=== PATIENT | male | born 1945 | race Caucasian/White ===

== ENCOUNTER → 2020-07-24 11:34 | Outpatient (BNVA) | payer OTHER, MEDICARE, SELFPAY | PROVIDERS: Visit Provider Nurse Practitioner Family | DX: Z20.828 Contact with and (suspected) exposure to other viral communicable diseases (principal) | CPT/HCPCS: 87635 ==

== ENCOUNTER 2020-09-27 11:39 | Outpatient (CLI) | payer MEDICARE, SELFPAY ==
[2020-09-27 11:51] VITALS: BMI 29.7
[2020-09-27 11:59] VITALS: BP 172/85; PULSE 69; RESP 18; TEMP 37.3; O2SAT 96
--- NOTE | 2020-09-27 12:02 | A.OFFVIS_ITS ---
Patient Information Referred by: Maxi Austin Symptom onset date: 09/24/20 COVID 19 common symptoms: positive fever(s), cough and dyspnea Other details: 96% Covid positive Maxi Austin 09/25/20 [facility] COVID test results: SARS-CoV-2 RNA (RT-PCR) Not detected (NOT DETECTED) 07/24/20 11:34 07/24/20 outside results available, scanned Criteria/Plan Inclusion/Exclusion Criteria weight >/= 40kg, + direct test </= 10 days ago and symptom onset </= 10 days ago age >/= 65 not requiring hospitalization, not requiring oxygen (if not chronically on oxygen) and no increase oxygen requirement (if chronically on oxygen) Patient education patient/caregiver received/reviewed fact sheet, Emergency Use Authorization/unapproved drug status discussed with patient/caregiver, alternatives to this treatment discussed with patient/caregiver, risks and benefits of medication reviewed with patient/caregiver, patient/caregiver given opportunity for questions, which were answered and patient/caregiver consents to receiving Monoclonal Antibody Treatment Plan for treatment Meets criteria for Monoclonal Antibody infusion
[2020-09-27 12:50] VITALS: BP 158/85; PULSE 64; RESP 18; O2SAT 97
[2020-09-27 14:49] VITALS: BP 146/81; PULSE 57; RESP 18; TEMP 36.8; O2SAT 99
[2020-09-27 14:50] VITALS: BP 146/81; PULSE 57; RESP 18; TEMP 36.8; O2SAT 99
== END 2020-09-27 14:50 | disposition home or self-care (01) ==
LOC: OPS 11:42
PROVIDERS: Visit Provider Nurse Practitioner Family
DX: U07.1 COVID-19 (principal)
CPT/HCPCS: 96365

== ENCOUNTER 2020-11-11 13:16 | Outpatient (CLI) | payer MEDICARE, SELFPAY ==
--- NOTE | 2020-11-11 13:29 | CT_ITS ---
WS: [id number] CT scan of the abdomen and pelvis with Oral and without IV contrast. Additional two-dimensional bela nal and sagittal reconstruction was performed. 11/11/2020 Clinical Data: ABDOMINAL PAIN, BLOATING, CONSTIPATION, NAUSEA, GASTRITIS Comparison: CT abdomen and pelvis, 06/10/2015. DLP: 1072.[address] scans at [facility] use at least one of these dose optimization techniques: automat ed exposure control; mA and/or kV adjustment per patient size (includes targeted exams where dose is matched to clinical indication); or iterative reconstruction. Findings: The lower lungs show no nodules, masses or effusions. There is a small hiatal hernia. The liver, gallbladder, spleen, adrenal glands and pancreas are normal. The kidneys show no cysts, masses, renal calculi or hydronephrosis. The abdominal aorta is normal in size calcification in the wall. No appendicitis or diverticulitis is seen. Oral contrast is in the stomach, small bowel and colon and there is no bowel dilatation. No abscess, adenopathy, ascites, mass, obstruction or free air is seen . The bladder is unremarkable. There are clips in the prostate bed from a prostatectomy. No inguinal he rnia is seen. 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 No bony metastatic lesions are seen.. CT/CT abdomen pelvis wo con [id number] Impression: 1. Negative for acute intra-abdominal or pelvic abnormalities. 2. Prostate removal with no bony metastatic lesions seen.
[2020-11-11] MEDS: iohexol 300 mg/mL 50 mL Btl PO (15:03)
== END 2020-11-11 13:17 | disposition home or self-care (01) ==
LOC: RADWPI 13:24
PROVIDERS: PCP Family Medicine; Visit Provider Electrodiagnostic Medicine
DX: R14.0 Abdominal distension (gaseous) (principal); R10.9 Unspecified abdominal pain; K59.00 Constipation, unspecified; R11.0 Nausea; K29.70 Gastritis, unspecified, without bleeding; Z90.79 Acquired absence of other genital organ(s)
CPT/HCPCS: 74176; Q9967

== ENCOUNTER 2024-06-20 06:05 | Outpatient (CLI) | payer OTHER, SELFPAY ==
--- NOTE | 2024-06-20 06:17 | US_ITS ---
WS: [id number] ULTRASOUND RENAL TECHNIQUE: Ultrasound examination of both kidneys. CLINICAL INFORMATION: MICROSCOPIC HEMATURIA COMPARISON: None. FINDINGS: RIGHT:Simple cyst inferior RIGHT kidney measuring 2.6 x 2.5 x 2.2 cm Right kidney is normal in size and appearance. Echogenicity: Normal. Cortical thickness: 1.5 cm; Normal. Hydronephrosis: None. Perinephric fluid: None. Right kidney measures: 9.6 cm x 4.7 cm x 4.8 cm. LEFT: Left kidney is normal in size and appearance. Echogenicity: Normal. Cortical thickness: 1.5 cm; Normal. Hydronephrosis: None. Perinephric fluid: None. Left kidney measures: 10.8 cm x 4.4 cm x 5.2 cm. Normal visualized aorta. Prior prostatectomy US/US renal BI* [id number] IMPRESSION: 1. Prior prostatectomy 2. Simple cyst inferior RIGHT kidney measuring 2.6 x 2.5 x 2.2 cm 3. No hydronephrosis in either kidney
== END 2024-06-20 06:06 | disposition home or self-care (01) ==
LOC: RAD 06:06
PROVIDERS: PCP Family Medicine; Visit Provider Physician Assistant
DX: N28.1 Cyst of kidney, acquired (principal); R31.21 Asymptomatic microscopic hematuria; Z85.831 Personal history of malignant neoplasm of soft tissue
CPT/HCPCS: 76770

== ENCOUNTER 2024-10-03 09:17 | Outpatient (CLI) | payer OTHER, SELFPAY ==
--- NOTE | 2024-10-03 09:28 | CT_ITS ---
WS: [id number] CT ABDOMEN AND PELVIS NONCONTRAST HISTORY: ABDOMINAL PAIN TECHNIQUE: Imaging performed through the abdomen and pelvis. Coronal and sagittal reformats are submitted. All CT scans at [facility] use at least one of these dose optimization techniques: automated exposure control; mA and/or kV adjustment per patient size (includes targeted exams where dose is matched to clinical indication); or iterative reconstruction. DLP: 454.31 mGy.cm COMPARISON: 11/11/2020, renal ultrasound 06/20/2024 Lower thorax: Lung bases are clear. Visualized heart is normal. No hiatal hernia. Liver: Normal size liver. No mass or bile duct dilatation. Gallbladder: Normal gallbladder. No pericholecystic fluid or cholelithiasis. No gallbladder wall thickening. Pancreas: Normal size and attenuation. Normal pancreatic duct. No pancreatitis or mass. Spleen: Normal. Adrenal glands: Normal. No mass. Right kidney: Normal size kidney. Too small to characterize hypodensity superior pole measures 6 mm. Simple cyst lower pole measures 2.1 x 2.3 cm which has been previously described by ultrasound. No obstruction of the kidney. No calcifications. Left kidney: Mild perinephric stranding. No renal obstruction or calcification. Aorta: Mild atherosclerosis abdominal aorta with no aneurysm. No free fluid, intraperitoneal air or significant lymphadenopathy. GI tract: Nondistended stomach. No small bowel obstruction. Normal appendix. Minimal diverticulosis at the sigmoid. Abdominal wall: Negative. No hernia. Pelvis: Prior prostatectomy. No adenopathy or ascites. Nondistended bladder. Osseous structures: Unremarkable. CT/CT abdomen pelvis wo con [id number] IMPRESSION: 1. No renal stones or obstruction. 2. Prior prostatectomy. 3. RIGHT renal cyst. 4. Mild atherosclerosis aorta.
== END 2024-10-03 09:18 | disposition home or self-care (01) ==
PROVIDERS: Visit Provider Electrodiagnostic Medicine
DX: R10.9 Unspecified abdominal pain (principal); Z98.890 Other specified postprocedural states; N28.1 Cyst of kidney, acquired; I70.0 Atherosclerosis of aorta; R93.422 Abnormal radiologic findings on diagnostic imaging of left kidney
CPT/HCPCS: 74176

== ENCOUNTER 2025-06-15 11:51 | Emergency (ER) | payer OTHER, MEDICARE, SELFPAY ==
--- NOTE | 2025-06-15 11:56 | ECG_ITS ---
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 Measurements Intervals [place] Rate: 64 P: 63 [place]: 233 QRS: -32 QRSD: 88 T: 53 QT: 388 QTc: 401 Interpretive Statements SINUS RHYTHM WITH FIRST DEGREE AV BLOCK LEFT AXIS DEVIATION [QRS AXIS < -30] MODERATE VOLTAGE CRITERIA FOR LVH, CONSIDER NORMAL VARIANT [MEETS CRITERIA IN ONE OF: R(aVL), S(V1), R(V5), R(V5/V6)+S(V1)] No previous ECG available for comparison Electronically Signed On 06-16-2025 19:21:12 CDT by Opal Whatley M.D. [email or web address] [id number]
[2025-06-15 11:57] VITALS: BP 164/83; PULSE 65; RESP 16; TEMP 36.6; O2SAT 96; BMI 29.7
--- NOTE | 2025-06-15 12:37 | XRR_ITS ---
PROCEDURE INFORMATION: Exam: XR Chest Exam date and time: 06/15/2025 12:47 PM Age: 79 years old Clinical indication: Pain; Angina pectoris; Additional info: Chest pain TECHNIQUE: Imaging protocol: Radiologic exam of the chest. Views: 1 view. COMPARISON: CT abdomen pelvis con [id number] 10/03/2024 9:36 AM FINDINGS: Lungs: Unremarkable. No consolidation. Pleural spaces: Unremarkable. No pleural effusion. No pneumothorax. Heart/Mediastinum: Unremarkable. No cardiomegaly. Bones/joints: Unremarkable. XR/XR chest 1V portable [id number] IMPRESSION: No acute findings.
--- NOTE | 2025-06-15 14:17 | ED_ITS ---
HPI - Chest Pain 2 General: Chief Complaint: Chest Pain Stated Complaint: cp, high bp, back pain Time Seen by Provider: 06/15/25 13:51 Source: patient Mode of arrival: ambulatory Limitations: no limitations History of Present Illness: Patient is a 79-year-old male with past medical history of hypertension presenting to the emergency department complaining of fluctuating blood pressures at home for the past couple days. He notes associated mild chest pressure, he states that this only occurs when his blood pressure is elevated. States his normal blood pressure is 150/70, has been as high as 180 systolic at home. Also notes he has been under more stress recently. States he has not had any significant changes in his medications recently, he is on multiple blood pressure medications consisting of amlodipine, lisinopril, and metoprolol. Also notes the past couple mornings he has felt nauseous while drinking his morning coffee, but that this resolved throughout the day and with the help of Zofran. He has no history of heart attack or stroke. His vitals are stable at this time blood pressure is closer to his normal range, 160/83 at bedside. Denies any falls, worsening shortness of breath with exertion, peripheral edema, abdominal pain, anuria, or other symptoms. MD complaint: chest pain and other (high BP) Pertinent past history: other (HTN) Onset (ago): day(s) Timing of current episode: episodic Pain location: substernal Quality: other (pressure) Exacerbating factors: other (elevated BP) Associated symptoms: Reports nausea; Deny abdominal pain, dyspnea, fever(s), palpitations or vomiting Treatment prior to arrival: none Related Data Home Medications ?Medication ?Instructions ?Recorded ?Confirmed amlodipine 10 mg tablet 0.5 mg PO DAILY 07/24/2005/18 aspirin 81 mg tablet,delayed 81 mg PO DAILY 07/24/20 0 05/05/22 release (Adult Aspirin Regimen) lisinopril 20 mg tablet 20 mg PO BID 07/24/20 melatonin 5 mg capsule 5 mg PO BEDTIME 07/24/2005/18 metoprolol tartrate 25 mg tablet 25 mg PO DAILY 05/05/22 multivitamin 1 tab PO DAILY 07/24/2005/18 Previous Rx's ?Medication ?Instructions ?Recorded mupirocin 2 % topical ointment 1 applic topical BID #1 5 grams 04/27/22 nystatin 100,000 unit/gram topical 1 applic topical BI D #15 grams 04/27/22 ointment pantoprazole 40 mg tablet,delayed See Rx Instructions .Route 12/23/24 release .COMPLEX #90 tabs Allergies Allergy/AdvReac Type Severity Reaction Status Date / Time No Known Allergies Allergy Verified 09/27/20 11:52 Review of Systems 2 General: Reports: 10 or more systems reviewed and unremarkable except in HPI and below Const: Denies: fever(s), chills or fatigue Eyes: Denies: change in vision ENMT: Denies: throat pain, ear or mastoid pain or nasal discharge Card: Reports: chest pain and other (HTN); Denies: palpitations, swelling of feet/ankles, lightheadedness or dyspnea on exertion Resp: Denies: dyspnea, productive cough or wheezing GI: Reports: nausea; Denies: abdominal pain, vomiting, diarrhea or constipation : Denies: flank pain, difficulty urinating, dysuria or urinary frequency Musc: Denies: neck pain, back pain or joint pain Skin/Breast: Denies: rash Neuro: Denies: headache(s), numbness in extremities or weakness in extremities PFSH ED 2 PFSH: Family History Other Diabetes Hyperlipidemia Hypertension Social History Smoking and tobacco/nicotine status: never used tobacco/nicotine Alcohol intake: never Substance/Drug Use: never Physical Exam 2 Const: COMMON NORMALS: no acute distress, patient oriented x3 and no limitations GENERAL APPEARANCE: cooperative, comfortable and well developed ORIENTATION/CONSCIOUSNESS: Yes awake, Yes oriented to person, Yes oriented to place and Yes oriented to time HENMT: COMMON NORMALS: normocephalic, atraumatic and hearing grossly normal bilaterally HEAD & SCALP: normocephalic and atraumatic Eye: COMMON NORMALS: Equal, round and reactive pupils present, EOMs intact bilaterally and conjunctivae normal CONJUNCTIVA: Yes conjunctivae normal P UPIL: Yes Equal, round and reactive pupils present Neck/C-Spine: COMMON NORMALS: full ROM, supple and no JVD Resp: COMMON NORMALS: normal respiratory effort, No retractions, No use of accessory muscles and clear to auscultation bilaterally AUSCULTATION: clear to auscultation bilaterally Cardio: COMMON NORMALS: no JVD, regular rate, regular rhythm, No clicks present (Cardio), No murmurs present (Cardio) and No rub (Cardio) RATE: r egular rate RHYTHM: regular rhythm GI: COMMON NORMALS: Normal to inspection, nondistended, normoactive bowel sounds present, Soft to palpation and non-tender AUSCULTATION: Yes normoactive bowel sounds PALPATION: Yes Soft to palpation RECTAL EXAM: Yes deferred Extremity: COMMON NORMALS: normal to inspection, full ROM and capillary refill normal Neuro: COMMON NORMALS: patient oriented x3, moves all extremities, no focal motor deficits and no sensory deficits noted SENSORIUM/ORIENTATION: Yes oriented to person, Yes oriented to place and Yes oriented to time Skin: COMMON NORMALS: no rashes or lesions noted GENERAL SKIN EXAM: no rashes or lesions noted Course 2 Vital Signs: Vital signs: Vital Signs Temperature 97.8 F 06/15/25 11:57 Pulse Rate 65 06/15/25 16:08 Respiratory Rate 16 06/15/25 16:08 Blood Pressure 175/85 06/15/25 16:08 Pulse Oximetry 96 06/15/25 16:08 Oxygen Delivery Me thod Room Air 06/15/25 11:57 MDM - Chest Pain Medical Decision Making This patient presented for evaluation of fluctuating blood pressure over the past few days, as well with associated symptoms of intermittent chest pain and nausea, he notes that the symptoms correlated directly when he noted his blood pressure was elevated. States normally his blood pressure is 150/70, here it has been slightly elevated compared to this but he was reporting readings at home as high as 180 systolic. No chest pain at this time or other symptoms whatsoever. His vitals have been stable. He had no pertinent cardiac history otherwise, notable that he is on combination of amlodipine, lisinopril, and metoprolol with no recent changes to these medications. Chest x-ray was negative here, his baseline troponin was negative. Electrolytes were normal, rest of his lab work was reassuring. His BNP was also negative and he did not appear clinically fluid overloaded. I suspect that this is related to his essential primary hypertension and he needs to follow-up with primary care, of which she has an appointment in the morning, to discuss medication and possible changes to be made. No changes made from the ED at this time as blood pressure has not been significantly elevated from his baseline. He has been symptom-free in the ED, no evidence that there is ACS, and stable for discharge home with return precautions given. Patient knows to return if worse. Lab Data 06/15/25 14:12 06/15/25 14:12 Radiology Impressions Chest X-Ray 06/15/25 12:37 IMPRESSION: No acute findings. Laboratory Results WBC 7.33 10^3/uL (3.29-11.43) 06/15/25 14:12 RBC 4.86 10^6/uL (3.85-5.65) 06/15/25 14:12 Hgb 14.80 g/dL (11.27-16.99) 06/15/25 14:12 Hct 41.9 % (37-53) 06/15/25 14:12 MCV 86.2 fl (82-101) 06/15/25 14:12 MCH 30.5 pg (27-33) 06/15/25 14:12 MCHC 35.3 g/dL (30-55) 06/15/25 14:12 RDW 12.3 % (12.1-15.1) 06/15/25 14:12 Plt Count 163 10^3/cmm (157-399) 06/15/25 14:12 MPV 9.0 fL (7.4-10.4) 06/15/25 14:12 Neut % (Auto) 66.8 % 06/15/25 14:12 Lymph % (Auto) 23.3 % 06/15/25 14:12 [place] % (Auto) 7.6 % 06/15/25 14:12 Eos % (Auto) 1.6 % 06/15/25 14:12 Baso % (Auto) 0.4 % 06/15/25 14:12 Neut # (Auto) 4.89 10^3/uL (1.8-7.7) 06/15/25 14:12 Lymph # (Auto) 1.7 10^3/uL (0.8-4.8) 06/15/25 14:12 [place] # (Auto) 0.6 10^3/uL (0.2-0.9) 06/15/25 14:12 Eos # (Auto) 0.1 10^3/uL (0.0-0.8) 06/15/25 14:12 Baso # (Auto) 0.0 10^3/uL (0.0-0.1) 06/15/25 14:12 Nucleated RBC % (auto) 0 % 06/15/25 14:12 Nucleated RBCs # 0.0 /100WBC 06/15/25 14:12 Sodium 137 mmol/L (136-145) 06/15/25 14:12 Potassium 3.6 mmol/L (3.5-5.1) 06/15/25 14:12 Chloride 101 mmol/L (98-107) 06/15/25 14:12 Carbon Dioxide 24 mmol/L (22-29) 06/15/25 14:12 Anion Gap 15.6 (5-19) 06/15/25 14:12 BUN 15 mg/dL (8-23) 06/15/25 14:12 Creatinine 1.2 mg/dL (0.7-1.2) 06/15/25 14:12 GFR Calculation Not Reportable 06/15/25 14:12 Glucose 115 mg/dL (65-115) 06/15/25 14:12 Calculated Osmolality 286 mOsm/kg (285-295) 06/15/25 14:12 Calcium 8.9 mg/dL (8.5-10.5) 06/15/25 14:12 Total Bilirubin 0.8 mg/dL (0.15-1.2) 06/15/25 14:12 AST 26 U/L (0-40) 06/15/25 14:12 ALT 24 U/L (0-41) 06/15/25 14:12 Alkaline Phosphatase 79 U/L (40-130) 06/15/25 14:12 Troponin T Baseline 12 ng/L (0-15) 06/15/25 14:12 NT-Pro-B Natriuret Pep 166 pg/mL (0-450) 06/15/25 14:12 Total Protein 6.9 g/dL (6.6-8.7) 06/15/25 14:12 Albumin 4.5 g/dL (3.5-5.2) 06/15/25 14:12 Globulin 2.4 g/dL (1.3-4.6) 06/15/25 14:12 All radiology interpretation(s) finalized by discharge Discharge Plan Discharge Patient Disposition: Home Clinical Impression: Essential (primary) hypertension Condition: Stable Prescriptions: No Action amlodipine 10 mg tablet 0.5 mg PO DAILY lisinopril 20 mg tablet 20 mg PO BID metoprolol tartrate 25 mg tablet 25 mg PO DAILY melatonin 5 mg capsule 5 mg PO BEDTIME aspirin [Adult Aspirin Regimen] 81 mg tablet,delayed release (DR/EC) 81 mg PO DAILY multivitamin Tablet 1 tab PO DAILY mupirocin 2 % ointment 1 applic topical BID Qty: 15 2RF nystatin 100,000 unit/gram ointment 1 applic topical BID Qty: 15 0RF pantoprazole 40 mg tablet,delayed release (DR/EC) See Rx Instructions .ROUTE .COMPLEX Qty: 90 3RF Dose Instruction: Take 1 tablet by mouth once daily Rx Instructions: Take 1 tablet by mouth once daily Discharge Orders: Discharge ED (Routine); Ordered 06/15/25 Ordered By: Tushar Boyer Referrals: Vimal Lubin DO [Primary Care Provider, Family Practice] Patient Instructions: Patient Portal & Sruya Instructions Activity Restrictions/Additional Instructions: Hypertension Discharge Instructions You are being discharged after evaluation for high blood pressure and chest pain. Your tests in the emergency department?including heart enzyme tests, chest x-ray, and EKG?were all normal. Your blood pressure has been stable and at your usual level during your stay, and you have had no further symptoms. What to do at home: - Monitor your blood pressure at home at least twice daily (morning and evening), using a validated home blood pressure monitor. Write down your readings and bring them to your next appointment. Accurate home monitoring is important for managing your blood pressure. - Continue your current blood pressure medications as prescribed. Do not make any changes unless instructed by your doctor. - Follow up with your primary care provider as scheduled in the morning. Bring your blood pressure log and all your medications to the visit. Discuss your medication regimen and any concerns at that time. - Watch for symptoms such as chest pain, shortness of breath, severe headache, vision changes, weakness, or confusion. If any of these occur, seek medical attention immediately. Lifestyle tips to help control blood pressure: - Eat a heart-healthy diet (such as the DASH diet), which is rich in fruits, vegetables, and low-fat dairy, and low in salt and saturated fat. - Limit salt (sodium) intake and avoid adding extra salt to your food. - Be physically active as tolerated, aiming for at least 30 minutes of moderate activity most days of the week. - Limit alcohol (no more than two drinks per day for men). - Do not smoke. If you need help quitting, ask your doctor for resources. - Maintain a healthy weight if possible. When to seek help: - If you have chest pain, trouble breathing, fainting, severe headache, or any new or concerning symptoms, call 911 or go to the nearest emergency department. Next steps: - Keep your follow-up appointment with your primary care provider in the morning. - Bring your blood pressure readings and medication list to your appointment. If you have any questions or concerns before your appointment, contact your healthcare provider. Print Language: Belarusian Coding Level of Care Code ED Senior Research Analyst for [employer] Heart Score HEART Score Components History: Slightly Suspicous EKG: Normal Age: 65 or more yrs Risk Factors: 1 or 2 Risk Factors Troponin: Baseline Trop <16 ng/L HEART Score RESULT HEART Score: 3
[2025-06-15 14:20] LABS: Hematocrit 41.9 % (37-53); Hemoglobin 14.80 g/dL (11.27-16.99); Mean Corpuscular HGB Conc 35.3 g/dL (30-55); Mean Corpuscular Hemoglobin 30.5 pg (27-33); Mean Corpuscular Volume 86.2 fl (82-101); Nucleated Red Blood Cells % 0 %; Platelet Count 163 10^3/cmm (157-399); Red Blood Count 4.86 10^6/uL (3.85-5.65); White Blood Count 7.33 10^3/uL (3.29-11.43)
--- NOTE | 2025-06-15 14:37 | ECG_ITS ---
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 Measurements Intervals [place] Rate: 62 P: 54 [place]: 236 QRS: -24 QRSD: 84 T: 30 QT: 391 QTc: 398 Interpretive Statements SINUS RHYTHM WITH FIRST DEGREE AV BLOCK BORDERLINE LEFT AXIS DEVIATION [QRS AXIS < -20] MODERATE VOLTAGE CRITERIA FOR LVH, CONSIDER NORMAL VARIANT [MEETS CRITERIA IN ONE OF: R(aVL), S(V1), R(V5), R(V5/V6)+S(V1)] WARNING: DATA QUALITY MAY AFFECT INTERPRETATION Compared to ECG 06/15/2025 11:56:13 No significant changes Electronically Signed On 06-16-2025 19:40:22 CDT by Opal Whatley M.D. [email or web address] [id number]
[2025-06-15 14:46] LABS: Troponin(5th) Baseline 12 ng/L (0-15)
[2025-06-15 14:49] LABS: Alanine Aminotransferase 24 U/L (0-41); Albumin Level 4.5 g/dL (3.5-5.2); Alkaline Phosphatase 79 U/L (40-130); Anion Gap 15.6 (5-19); Aspartate Amino Transferase 26 U/L (0-40); Blood Urea Nitrogen 15 mg/dL (8-23); Calcium 8.9 mg/dL (8.5-10.5); Carbon Dioxide 24 mmol/L (22-29); Chloride 101 mmol/L (98-107); Creatinine Clr Calc Pharmacy 54.0555; Globulin 2.4 g/dL (1.3-4.6); Glucose 115 mg/dL (65-115); NT Pro B Type Natriuretic Pept 166 pg/mL (0-450); Osmolality Calculated 286 mOsm/kg (285-295); Potassium 3.6 mmol/L (3.5-5.1); Sodium 137 mmol/L (136-145); Total Protein 6.9 g/dL (6.6-8.7)
[2025-06-15 14:52] VITALS: BP 183/93; PULSE 63; RESP 16; O2SAT 95
[2025-06-15 15:00] VITALS: BP 152/82; PULSE 67; RESP 18; O2SAT 93
[2025-06-15 16:08] VITALS: BP 175/85; PULSE 65; RESP 16; O2SAT 96
== END 2025-06-15 16:07 | disposition home or self-care (01) ==
PROVIDERS: Emergency Medicine; Emergency Provider Physician Assistant; PCP Electrodiagnostic Medicine
DX: I10 Essential (primary) hypertension (principal); Z79.82 Long term (current) use of aspirin
CPT/HCPCS: 36415; 71045; 80053; 83880; 84484; 85025; 93005; 99285; J9999

== ENCOUNTER 2025-08-04 08:56 | Outpatient (CLI) | payer MEDICARE, SELFPAY ==
[2025-08-04 09:59] VITALS: BMI 29.0
--- NOTE | 2025-08-04 09:59 | ECG_ITS ---
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 Interpretive Statements Procedure: A total of 0.4 mg of Lexiscan was infused over 20 seconds. The stress phase was continued for a total of 5 minutes. Sestamibi was injected 20 seconds after the Lexiscan infusion. Findings: The patient's baseline blood pressure was 165/83 with a heart rate of 73 bpm. There was no significant change in heart rate or blood pressure during the stress test. The patient did develop nausea after the Lexiscan injection. The patient was given Zofran 4 mg IV which resolved the nausea. The baseline EKG showed normal sinus rhythm with no significant ST or T wave abnormality. Stress EKG showed no inducible ischemia or arrhythmia. Conclusion: 1. Stress EKG negative for inducible ischemia 2. No Lexiscan induced chest pain or cardiac arrhythmia. 3. Normal blood pressure and heart rate response. 4. Nuclear myocardial perfusion scan pending; see separate report. Electronically Signed On 08-05-2025 19:19:26 KENNEL HELPER by Dakota Sandy M.D. [email or web address] [id number]
--- NOTE | 2025-08-04 10:00 | NMCV_ITS ---
NM ana luisa perf SPECT r/s* [id number] Favio Shukla Age: 79 Gender: M : 1945 Exam Date: 08/04/2025 10:03 Ordering Phys: Vimal Lubin DO Technologist: FRANDY Lion Exam Location: [facility] Indications: cp STRESS TEST Please see separate stress test report in [facility] for full findings IMAGE PROTOCOL Rest/Stress 1 Lexiscan Day Radiopharmaceutical Dose (mCi) Administration Site Administered by Rest: Tc-99m 10.4 IV FRANDY Lion Sestamibi Stress:Tc-99m 32.9 IV FRANDY Smith Sestamibi Rest: 04-Aug-2025 60 Discovery 630 Stress: 04-Aug-2025 30 Discovery 630 0.4mg Lexiscan. Images obtained in supine and prone position. SPECT RESULTS Technical Quality: Good Raw Data Analysis: Normal Image Corrections: No attenuation or motion correction applied Summed Stress Score: 1 Summed Rest Score: 1 Summed Difference Score: 1 PERFUSION FINDINGS SPECT images demonstrate homogeneous tracer distribution throughout the myocardium. FUNCTIONAL RESULTS (calculated via Gated SPECT) Stress Image LV EF (%): 74 Stress EDV (mL):92 TID: 0.84 Stress ESV (mL):24 FUNCTIONAL FINDINGS: There is normal left ventricular systolic function. IMPRESSIONS Myocardial perfusion imaging is normal. Abdiel Lopez MD (Electronically Signed) Final Date: 04 August 2025 12:46 S
[2025-08-04] MEDS: ondansetron 2 mg/ML SDV 2 mL 4 MG IVP (10:58)
[2025-08-04 11:01] VITALS: BP 158/77; PULSE 80
== END 2025-08-04 08:57 | disposition home or self-care (01) ==
LOC: CDL 09:04
PROVIDERS: PCP Electrodiagnostic Medicine; Visit Provider Electrodiagnostic Medicine
DX: R07.9 Chest pain, unspecified (principal)
CPT/HCPCS: 36415; 78452; 93017; 96374; A9500; J2405; J2785